=== PATIENT | male | born 2000 | race Two or more races ===

== ENCOUNTER 2022-07-02 21:11 | Emergency (ER) | payer OTHER ==
[~2022-07-02] VITALS: Ht 177.8 cm; Wt 95.3 kg
[2022-07-02] MEDS ORDERED: MUPIROCIN22 GM NASAL (23:34)
[2022-07-02] MEDS ORDERED: BACTRIM DS TAB1 EACH PO (23:34)
[2022-07-02] MEDS ORDERED: DICLOFENAC SODI75 MG PO (23:34)
== END 2022-07-03 01:24 | disposition home or self-care (01) ==
LOC: ER 21:11

== ENCOUNTER 2022-08-17 11:58 | Emergency (ER) | payer OTHER ==
[~2022-08-17] VITALS: Ht 175.3 cm; Wt 95.3 kg
[~2022-08-17 11:58] MED LIST: BACTRIM DS TAB1 EACH PO; DICLOFENAC SODI75 MG PO; MUPIROCIN22 GM NASAL
== END 2022-08-17 17:34 | disposition home or self-care (01) ==
LOC: ER 11:58
DX: S09.90XA Unspecified injury of head, initial encounter (principal); Y04.0XXA Assault by unarmed brawl or fight, initial encounter; Y93.9 Activity, unspecified; Y92.9 Unspecified place or not applicable; S20.219A Contusion of unspecified front wall of thorax, initial encounter; S60.222A Contusion of left hand, initial encounter; S60.221A Contusion of right hand, initial encounter; S50.12XA Contusion of left forearm, initial encounter; S40.012A Contusion of left shoulder, initial encounter; S60.212A Contusion of left wrist, initial encounter; S13.4XXA Sprain of ligaments of cervical spine, initial encounter; Z91.013 Allergy to seafood

== ENCOUNTER 2022-08-19 17:15 | Emergency (ER) | payer OTHER ==
[~2022-08-19] VITALS: Ht 177.8 cm; Wt 95.3 kg
[2022-08-19] MEDS ORDERED: DICLOFENAC POTA50 MG PO (20:00)
== END 2022-08-19 20:11 | disposition home or self-care (01) ==
LOC: ER 17:15
DX: R52 Pain, unspecified (principal); Z91.013 Allergy to seafood

== ENCOUNTER 2022-11-02 23:24 | Emergency (ER) | payer OTHER ==
[~2022-11-02] VITALS: Ht 175.3 cm; Wt 83.9 kg
[~2022-11-02 23:24] MED LIST changes: +DICLOFENAC POTA50 MG PO
== END 2022-11-03 03:34 | disposition home or self-care (01) ==
LOC: ER 23:24
DX: M25.50 Pain in unspecified joint (principal); Z20.822 Contact with and (suspected) exposure to COVID-19; Z91.013 Allergy to seafood

== ENCOUNTER 2023-02-02 22:20 | Emergency (ER) | payer OTHER ==
[~2023-02-02] VITALS: Ht 175.3 cm; Wt 87.5 kg
== END 2023-02-03 | disposition home or self-care (01) ==
LOC: ER 22:20
DX: H66.91 Otitis media, unspecified, right ear (principal); Z91.013 Allergy to seafood; Z88.6 Allergy status to analgesic agent

== ENCOUNTER 2023-02-04 18:18 | Emergency (ER) | payer OTHER ==
[~2023-02-04] VITALS: Ht 177.8 cm; Wt 102.1 kg
== END 2023-02-04 21:37 | disposition home or self-care (01) ==
LOC: ER 18:18
DX: H60.91 Unspecified otitis externa, right ear (principal); Z88.8 Allergy status to other drugs, medicaments and biological substances; Z91.013 Allergy to seafood

== ENCOUNTER 2023-10-16 16:38 | Emergency (ER) | payer OTHER ==
[~2023-10-16] VITALS: Ht 177.8 cm; Wt 102.1 kg
[2023-10-16 20:18] LABS: HEMATOCRIT 45.5 % (39.0-48.0); HEMOGLOBIN 15.9 g/dL (13-16.00); MEAN CELL VOLUME 88.9 fL (80.0-100.00); MEAN CORPUSCULAR HEMOGLOBIN 31.1 pg (27.00-32.0); PLATELET COUNT 211 K/uL (150-450); RED BLOOD COUNT 5.12 M/uL (4.00-6.00); RED CELL DISTRIBUTION WIDTH 12.4 % (11.5-14.5)
[2023-10-16 20:35] LABS: CALCIUM 9.3 mg/dL (8.5-10.1); CREATININE SERUM 1.23 mg/dL (0.70-1.30); GFR 71.7; POTASSIUM 3.61 mEq/L (3.5-5.1)
== END 2023-10-16 22:16 | disposition home or self-care (01) ==
LOC: ER 16:39
DX: J03.90 Acute tonsillitis, unspecified (principal); R53.81 Other malaise; R11.10 Vomiting, unspecified; Z91.013 Allergy to seafood; Z88.8 Allergy status to other drugs, medicaments and biological substances; Z20.822 Contact with and (suspected) exposure to COVID-19
CPT/HCPCS: 36415; 96365; 96372; 99284; J0696; J1885; J2250

== ENCOUNTER 2024-06-18 23:35 | Emergency (ER) | payer OTHER ==
[~2024-06-18] VITALS: Ht 172.7 cm; Wt 74.8 kg
[2024-06-19] MEDS ORDERED: RINGERS SOLUTION,LACTATED 500 ML IV STA (05:28)
[2024-06-19] MEDS ORDERED: MEPERIDINE HCL/PF 25 MG/ML VIAL IM STA (05:29)
[2024-06-19] MEDS ORDERED: KETOROLAC TROMETHAMINE 30 MG VIAL IV STA (05:29)
[2024-06-19] MEDS ORDERED: PROMETHAZINE HCL 25 MG/ML AMPUL IM STA (05:30)
[2024-06-19] MEDS ORDERED: CEFTRIAXONE SODIUM 2,000 MG VIAL IV STA (05:31)
[2024-06-19] MEDS ORDERED: PROMETHAZINE HCL 25 MG/ML AMPUL ONE (05:46)
[2024-06-19] MEDS ORDERED: KETOROLAC TROMETHAMINE 30 MG VIAL ONE (05:46)
[2024-06-19] MEDS ORDERED: CEFTRIAXONE SODIUM 2,000 MG VIAL ONE (05:46)
[2024-06-19 06:22] LABS: PH,URINE 5.5 (5.0-8.0); URINE APPEARANCE Clear; URINE BILIRRUBIN Negative (NEGATIVE); URINE BLOOD Negative; URINE COLOR Yellow; URINE GLUCOSE Negative (NEGATIVE); URINE LEUKOCYTE Negative; URINE NITRATE Negative; URINE PROTEIN Negative (NEGATIVE)
[2024-06-19 06:26] LABS: URINE BACTERIA 13.8 uL (0.0-1933); URINE EPITHELIAL CELLS 1.5 uL (0.0-38.8); URINE RBC 4.1 uL (0.0-20.8); URINE WBC 34.9 uL (0.0-23.2)
[2024-06-19 07:26] LABS: CALCIUM 8.8 mg/dL (8.5-10.1); CREATININE SERUM 1.14 mg/dL (0.70-1.30); GFR 78.27; POTASSIUM 3.8 mEq/L (3.5-5.1)
[2024-06-19 08:08] LABS: HEMATOCRIT 43.7 % (39.0-48.0); HEMOGLOBIN 15.2 g/dL (13-16.00); MEAN CORPUSCULAR HEMOGLOBIN 31.3 pg (27.00-32.0); MEAN CORPUSCULAR HGB CONC 34.8 g/dl (32.0-36.0); PLATELET COUNT 241 K/uL (150-450); RED BLOOD COUNT 4.86 M/uL (4.00-6.00); RED CELL DISTRIBUTION WIDTH 12.9 % (11.5-14.5)
== END 2024-06-19 09:40 | disposition home or self-care (01) ==
LOC: ER 23:35
DX: N34.2 Other urethritis (principal); R30.0 Dysuria; N43.40 Spermatocele of epididymis, unspecified; Z91.013 Allergy to seafood; Z88.8 Allergy status to other drugs, medicaments and biological substances

== ENCOUNTER 2024-06-20 20:39 | Emergency (ER) | payer OTHER ==
[~2024-06-20] VITALS: Ht 175.3 cm; Wt 90.7 kg
[2024-06-20] MEDS ORDERED: KETOROLAC TROMETHAMINE 30 MG VIAL ONE (21:44)
[2024-06-20] MEDS ORDERED: KETOROLAC TROMETHAMINE 15 MG VIAL IV ONE (21:45)
[2024-06-20 22:04] LABS: HEMATOCRIT 46.8 % (39.0-48.0); HEMOGLOBIN 16.5 g/dL (13-16.00); MEAN CELL VOLUME 89.9 fL (80.0-100.00); MEAN CORPUSCULAR HEMOGLOBIN 31.7 pg (27.00-32.0); MEAN CORPUSCULAR HGB CONC 35.2 g/dl (32.0-36.0); PLATELET COUNT 212 K/uL (150-450); RED BLOOD COUNT 5.21 M/uL (4.00-6.00)
[2024-06-20 22:36] LABS: ALBUMIN 4.2 gm/dL (3.4-5.0); BILIRUBIN TOTAL 0.99 mg/dL (0.3-1.2); CALCIUM 9.2 mg/dL (8.5-10.1); CREATININE SERUM 1.02 mg/dL (0.70-1.30); GFR 88.99; GLOBULINA 3.5 G/DL (2.4-3.5); POTASSIUM 4.17 mEq/L (3.5-5.1); TOTAL PROTEIN 7.7 gm/dL (6.4-8.2)
[2024-06-20 23:03] LABS: PH,URINE 5.5 (5.0-8.0); URINE BILIRRUBIN Negative (NEGATIVE); URINE BLOOD Negative; URINE COLOR Yellow; URINE GLUCOSE Negative (NEGATIVE); URINE KETONE Negative (NEGATIVE); URINE LEUKOCYTE Negative; URINE NITRATE Negative; URINE PROTEIN Negative (NEGATIVE); URINE UROBILINOGEN 0.2 E.U./dl
[2024-06-20 23:06] LABS: URINE BACTERIA 6.2 uL (0.0-1933); URINE WBC 2.7 uL (0.0-23.2)
[2024-06-20] MEDS ORDERED: levoFLOXacin IN DEXTROSE 5 % 500MG/100ML PIGGYBAG IV ONE ×2 (23:15→23:37)
[2024-06-20 23:19] LABS: URINE APPEARANCE CLEAR; URINE EPITHELIAL CELLS 0.7 uL (0.0-38.8); URINE RBC 0.4 uL (0.0-20.8)
== END 2024-06-21 00:54 | disposition home or self-care (01) ==
LOC: ER 20:40
PROVIDERS: General Practice
DX: R10.2 Pelvic and perineal pain (principal); Z91.013 Allergy to seafood

== ENCOUNTER 2025-06-22 09:47 | Emergency (ER) | payer OTHER ==
[~2025-06-22] VITALS: Ht 175.3 cm; Wt 86.2 kg
[2025-06-22] MEDS ORDERED: KETOROLAC TROMETHAMINE 60 MG VIAL IM ONE (12:30)
[2025-06-22] MEDS ORDERED: IBUPROFEN800 MG PO (15:14)
== END 2025-06-22 15:41 | disposition home or self-care (01) ==
LOC: ER 10:03
DX: G89.11 Acute pain due to trauma (principal); M79.632 Pain in left forearm; Z88.0 Allergy status to penicillin; Z91.013 Allergy to seafood

== ENCOUNTER 2025-10-30 12:34 | Emergency (ER) | payer OTHER ==
[~2025-10-30] VITALS: Ht 175.3 cm; Wt 87.1 kg
[~2025-10-30 12:34] MED LIST changes: +IBUPROFEN800 MG PO
[2025-10-30] MEDS ORDERED: RINGERS SOLUTION,LACTATED 1,000 ML IV SCH (18:00)
[2025-10-30] MEDS ORDERED: FAMOTIDINE/PF 20 MG in 0.9 % SODIUM CHLORIDE 8 ML IV PUSH ONE (18:00)
[2025-10-30] MEDS ORDERED: ONDANSETRON HCL 4 MG in 0.9 % SODIUM CHLORIDE 50 ML IV ONE (18:00)
[2025-10-30] MEDS ORDERED: ONDANSETRON HCL 2 MG/ML VIAL ONE (20:12)
[2025-10-30] MEDS ORDERED: FAMOTIDINE/PF 20 MG/2 ML VIAL ONE (20:12)
[2025-10-30 20:37] LABS: BASO % 0.5 % (0.1-1.2); EOS # 0.07 (0.04-0.54); EOS % 1.0 % (0.7-7.0); LYMPH # 2.52 (1.18-3.74); LYMPH % 34.3 % (19.3-53.1); MEAN PLATELET VOLUME 9.70 fl (9.4-12.4); MONO # 0.46 (0.24-0.82); MONO % 6.3 % (4.7-12.5); NEUT # 4.24 (1.56-6.13); NEUT % 57.6 % (34.0-71.1); RED CELL DISTRIBUTION WIDTH 11.6 % (11.6-14.4)
[2025-10-30 20:55] LABS: INR 1.04
[2025-10-30 21:05] LABS: ALT/SGPT 21.0 U/L (12-78); AST/SGOT 13.0 U/L (15-37); BILIRUBIN TOTAL 1.12 mg/dL (0.3-1.2); BUN CREA RATIO 10.0 (7.0-25.0); CREATININE SERUM 1.06 mg/dL (0.70-1.30); GFR 83.8; GLOBULINA 3.6 G/DL (2.4-3.5); GLUCOSE FASTING 107.0 mg/dL (65-100); OSMOLALITY SERUM 285.0 MOSM/KG (275-295)
[2025-10-30 22:16] LABS: COVID-19 AG NEGATIVE (NEGATIVE)
== END 2025-10-31 00:22 | disposition home or self-care (01) ==
LOC: ER 12:35
PROVIDERS: General Practice
DX: R55 Syncope and collapse (principal); Z20.822 Contact with and (suspected) exposure to COVID-19; Z88.8 Allergy status to other drugs, medicaments and biological substances; Z91.013 Allergy to seafood